=== PATIENT | female | born 1985 | race Caucasian/White ===

== ENCOUNTER 2018-12-21 13:27 | Emergency (ER) | payer OTHER ==
[~2018-12-21] VITALS: Ht 157.5 cm; Wt 60.8 kg
--- NOTE | 2018-12-21 13:33 | NUR ---
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
--- NOTE | 2018-12-21 13:43 | NUR ---
SEEN AND EXAMINED BY .
--- NOTE | 2018-12-21 14:19 | NUR ---
URINE SPECIMEN COLLECTED AND SENT TO LAB.
[2018-12-21] MEDS ORDERED: IBUPROFEN 600 MG TABLET PO ONE ×2 (14:30→14:40)
--- NOTE | 2018-12-21 14:44 | NUR ---
Patient given written and verbal discharge instructions. Patient verbalizes understanding of instructions. Patient is ambulatory with steady gait. Refuses offer of group home placement. Patient given list of available shelters in surrounding area.
[2018-12-21 14:50] VITALS: BP 108/61
== END 2018-12-21 14:52 | disposition home or self-care (01) ==
LOC: ER 13:36
DX: R07.89 Other chest pain (principal); F17.200 Nicotine dependence, unspecified, uncomplicated; F32.9 Major depressive disorder, single episode, unspecified; Z88.8 Allergy status to other drugs, medicaments and biological substances
CPT/HCPCS: 71045-TC

== ENCOUNTER 2018-12-21 16:58 | Emergency (ER) | payer OTHER ==
[~2018-12-21] VITALS: Ht 157.5 cm; Wt 65.8 kg
[2018-12-21 17:03] VITALS: BP 117/73
[2018-12-21] MEDS ORDERED: LORAZEPAM 1 MG TABLET PO ONE (17:30)
--- NOTE | 2018-12-21 17:45 | NUR ---
Patient given written and verbal discharge instructions. Patient verbalizes understanding of instructions. Patient is ambulatory with steady gait. Refuses offer of fci placement. Patient given list of available shelters in surrounding area.
== END 2018-12-21 17:47 | disposition home or self-care (01) ==
LOC: ER 16:59
DX: F41.9 Anxiety disorder, unspecified (principal); F32.9 Major depressive disorder, single episode, unspecified; E11.9 Type 2 diabetes mellitus without complications; J45.909 Unspecified asthma, uncomplicated; F90.9 Attention-deficit hyperactivity disorder, unspecified type; Z32.02 Encounter for pregnancy test, result negative; Z88.8 Allergy status to other drugs, medicaments and biological substances
CPT/HCPCS: 84703-TC

== ENCOUNTER 2018-12-21 20:00 | Emergency (ER) | payer OTHER ==
[~2018-12-21] VITALS: Ht 162.6 cm; Wt 59.0 kg
[2018-12-21 20:12] VITALS: BP 113/60
--- NOTE | 2018-12-21 23:21 | NUR ---
CALLED PT IN WAITING ROOM. NO RESPONSE.
== END 2018-12-22 01:38 | disposition home or self-care (01) ==
LOC: ER 20:00
DX: R51 Headache (principal); F32.9 Major depressive disorder, single episode, unspecified; F90.9 Attention-deficit hyperactivity disorder, unspecified type; Z59.0 Homelessness; Z88.8 Allergy status to other drugs, medicaments and biological substances; Z32.02 Encounter for pregnancy test, result negative

== ENCOUNTER 2018-12-30 18:00 | Emergency (ER) | payer OTHER ==
[~2018-12-30] VITALS: Ht 157.5 cm; Wt 59.0 kg
--- NOTE | 2018-12-30 18:07 | NUR ---
"I WANT TO GO BACK TO [facility]" "I DONT FEEL SAFE OUTSIDE" PT WAS DISCHARGED THIS AM AT [facility] " PT TO BED 11, PT AAOX4, -SOB, VSS, SI PRECAUTIONS INITIATED FOR SAFETY. ALL BELONGING IN UTILITY ROOM PER PROTOCOL
[2018-12-30 18:28] LABS: BASOPHILS # (AUTO) 0.1 /CMM (0.0-0.2); BASOPHILS % (AUTO) 1.2 % (0.0-2.0); EOSINOPHILS % (AUTO) 2.5 % (0.0-6.0); HEMATOCRIT 37 % (33-45); HEMOGLOBIN 12.7 g/dL (11.5-14.8); LYMPHOCYTES # (AUTO) 2.2 /CMM (0.8-4.8); LYMPHOCYTES % (AUTO) 30.7 % (20.0-44.0); MEAN CORPUSCULAR HGB CONC 35 g/dl (31.0-36.0); MEAN CORPUSCULAR VOLUME 81 fL (82-100); MONOCYTES # (AUTO) 0.8 /CMM (0.1-1.30); NEUTROPHILS # (AUTO) 3.8 /CMM (1.8-8.9); NEUTROPHILS % (AUTO) 54.6 % (43.0-81.0); PLATELET COUNT (AUTO) 255 /CMM (150-450); RED BLOOD CELL COUNT(AUTO) 4.51 MIL/uL (4.0-5.2)
[2018-12-30 18:42] LABS: ALANINE AMINOTRANSFERASE 30 U/L (12-78); ALBUMIN 3.9 g/dL (3.4-5.0); ALCOHOL, BLOOD < 3 mg/dL (0-0); ALKALINE PHOSPHATASE 60 U/L (46-116); ASPARTATE AMINOTRANSFERASE 22 U/L (15-37); BILIRUBIN,DIRECT 0.1 mg/dL (0.0-0.2); BILIRUBIN,TOTAL 0.3 mg/dL (0.2-1.0); CALCIUM, SERUM 8.9 mg/dL (8.5-10.1); CARBON DIOXIDE 28 mmol/L (21-32); CHLORIDE 102 mmol/L (98-107); CREATININE 0.8 mg/dL (0.6-1.3); GLUCOSE 88 mg/dL (74-106); POTASSIUM 3.9 mmol/L (3.5-5.1); SODIUM SERUM 137 mmol/L (136-145); TOTAL PROTEIN, SERUM 7.5 g/dL (6.4-8.2); UREA NITROGEN, BLOOD 16 mg/dL (7-18)
[2018-12-30 18:43] LABS: ACETAMINOPHEN < 2 ug/ml (10-30); SALICYLATE 1.7 mg/dL (2.8-20.0)
[2018-12-30] MEDS ORDERED: OLANZAPINE 5 MG TABLET PO ONE (19:00)
[2018-12-30] MEDS ORDERED: OLANZAPINE 5 MG TABLET ONE (19:04)
[2018-12-30 19:14] LABS: APPEARANCE,URINE Clear (CLEAR); BILIRUBIN,URINE Negative (NEGATIVE); BLOOD, URINE Negative Ery/uL (NEGATIVE); COLOR,URINE Yellow (YELLOW); KETONES,URINE Negative (NEGATIVE); LEUKOCYTE ESTERASE ,URINE Negative (NEGATIVE); NITRITE, URINE Negative (NEGATIVE); PROTEIN,URINE Negative (NEGATIVE); UGLUCOSE Negative (NEGATIVE); UROBILINOGEN,URINE 0.2 EU/dL (0.2)
--- NOTE | 2018-12-30 20:36 | NUR ---
Patient given written and verbal discharge instructions. Patient verbalizes understanding of instructions. Patient is ambulatory with steady gait. Refuses offer of longterm placement. Patient given list of available shelters in surrounding area.
[2018-12-30 20:37] VITALS: BP 125/80
== END 2018-12-30 20:38 | disposition home or self-care (01) ==
LOC: ER 18:03
DX: F41.9 Anxiety disorder, unspecified (principal); F31.9 Bipolar disorder, unspecified; F90.9 Attention-deficit hyperactivity disorder, unspecified type; Z88.8 Allergy status to other drugs, medicaments and biological substances
CPT/HCPCS: 36415; 80048; 80076; 80305; 80307; 80329; 81001; 85025; 99284; G0480; 81000-TC

== ENCOUNTER 2019-01-04 19:38 | Emergency (ER) | payer OTHER ==
[~2019-01-04] VITALS: Ht 157.5 cm; Wt 59.0 kg
--- NOTE | 2019-01-04 19:55 | NUR ---
TENA FROM [facility]. PT TO BE TRANSFERRED, UPON TRANSFER PT C/O MIDSTERNAL CHEST PAIN. SHARP, NONRADIATING. 02/01. DENIES SOB, N/V. NO ACUTE DISTRESS NOTED. URINE SENT TO STAT LAB. READY FOR EVAL.
[2019-01-04 20:38] LABS: BASOPHILS # (AUTO) 0.1 /CMM (0.0-0.2); BASOPHILS % (AUTO) 1.5 % (0.0-2.0); EOSINOPHILS % (AUTO) 2.1 % (0.0-6.0); HEMATOCRIT 38 % (33-45); HEMOGLOBIN 13.4 g/dL (11.5-14.8); LYMPHOCYTES # (AUTO) 1.9 /CMM (0.8-4.8); MEAN CORPUSCULAR HGB CONC 35 g/dl (31.0-36.0); MEAN CORPUSCULAR VOLUME 82 fL (82-100); MONOCYTES # (AUTO) 0.7 /CMM (0.1-1.30); MONOCYTES % (AUTO) 8.1 % (2.0-12.0); NEUTROPHILS # (AUTO) 5.5 /CMM (1.8-8.9); NEUTROPHILS % (AUTO) 65.3 % (43.0-81.0); PLATELET COUNT (AUTO) 277 /CMM (150-450); RED BLOOD CELL COUNT(AUTO) 4.65 MIL/uL (4.0-5.2); WHITE BLOOD COUNT (AUTO) 8.4 K/uL (4.3-11.0)
[2019-01-04 20:39] LABS: APPEARANCE,URINE Slightly Cloudy (CLEAR); BILIRUBIN,URINE Negative (NEGATIVE); BLOOD, URINE Moderate Ery/uL (NEGATIVE); COLOR,URINE Yellow (YELLOW); KETONES,URINE Negative (NEGATIVE); LEUKOCYTE ESTERASE ,URINE Trace (NEGATIVE); NITRITE, URINE Negative (NEGATIVE); PROTEIN,URINE Negative (NEGATIVE); UGLUCOSE Negative (NEGATIVE); UROBILINOGEN,URINE 0.2 EU/dL (0.2)
[2019-01-04 20:48] LABS: BACTERIA,URINE Few /HPF (None Seen); SQUAMOUS EPITHELIAL CELL,UR Few /HPF (None Seen)
[2019-01-04 20:59] LABS: CALCIUM, SERUM 9.1 mg/dL (8.5-10.1); CARBON DIOXIDE 32 mmol/L (21-32); CHLORIDE 101 mmol/L (98-107); CREATININE 0.9 mg/dL (0.6-1.3); GLUCOSE 108 mg/dL (74-106); POTASSIUM 3.4 mmol/L (3.5-5.1); SODIUM SERUM 139 mmol/L (136-145); UREA NITROGEN, BLOOD 16 mg/dL (7-18)
[2019-01-04 21:04] LABS: ALANINE AMINOTRANSFERASE 35 U/L (12-78); ALBUMIN 4.3 g/dL (3.4-5.0); ALKALINE PHOSPHATASE 67 U/L (46-116); ASPARTATE AMINOTRANSFERASE 28 U/L (15-37); BILIRUBIN,DIRECT 0.1 mg/dL (0.0-0.2); BILIRUBIN,TOTAL 0.6 mg/dL (0.2-1.0); TOTAL PROTEIN, SERUM 8.2 g/dL (6.4-8.2)
[2019-01-04 21:05] LABS: ACETAMINOPHEN < 2 ug/ml (10-30); ALCOHOL, BLOOD < 3 mg/dL (0-0); SALICYLATE < 2.8 mg/dL (2.8-20.0)
--- NOTE | 2019-01-04 21:17 | NUR ---
PT RESTING COMFORTABLY IN BED. NO COMPLAINTS AT THIS TIME. WILL CONT TO MONITOR.
--- NOTE | 2019-01-04 21:45 | NUR ---
PT UP WALKING AROUND, STATING SHE NEEDS TO "GET SOME AIR". INFORMED PT SHE IS UNABLE TO GO OUTSIDE AND THAT SHE SHOULD WAIT IN HER ROOM. PT COMPLIED
[2019-01-04] MEDS ORDERED: CEPHALEXIN MONOHYDRATE 500 MG CAPSULE PO ONE ×2 (22:00→22:22)
[2019-01-04] MEDS ORDERED: OLANZAPINE 10 MG VIAL IM ONE ×2 (22:49→23:00)
--- NOTE | 2019-01-04 22:50 | NUR ---
PT CONSTANTLY WANDERING AROUND ER AND NEEDS TO BE TOLD TO REMAIN IN ROOM. PT BECAME VERBALLY AND PHYSICALLY AGGRESSIVE. SECURITY NOTIFIED. AWARE.
--- NOTE | 2019-01-05 01:17 | NUR ---
PT RESTING COMFORTABLY IN BED. VITAL SIGNS STABLE. PT STATES SHE IS STILL EXPERIENCING VOICES TELLING HER TO HURT HERSELF. SUICIDE PRECAUTIONS INITIATED. PT WANDED BY SECURITY. SITTER AT BEDSIDE. WILL CONTINUE TO MONITOR.
--- NOTE | 2019-01-05 02:53 | NUR ---
PT RESTING COMFORTABLY IN BED. VITAL SIGNS STABLE. NO ACUTE DISTRESS NOTED AT THIS TIME. SITTER AT BEDSIDE
--- NOTE | 2019-01-05 06:19 | NUR ---
PT RESTING COMFORTABLY IN BED. VITAL SIGNS STABLE. SITTER AT BEDSIDE.
--- NOTE | 2019-01-05 07:55 | NUR ---
CALLED KENJI AT [facility]. WAS ADVISED PT WILL BE PICKED UP AT 1100. AWAITING BED. # FOR REPORT, [phone]. EXT [id number]
[2019-01-05 09:02] VITALS: BP 129/80
--- NOTE | 2019-01-05 09:02 | NUR ---
PT IN BED AT THIS TIME, CHRISTIANO NOTED, VSS, UPDATED PT THAT WE ARE STILL WAITING FOR BED AT [facility].
--- NOTE | 2019-01-05 09:54 | NUR ---
PT ELOPED FROM EMERGECNY DEPARTMENT, PT IS WEARING HOSPITAL GOWN, ALL BELONGINGS IN LOCKER, PT REFUSED TO COME BACK TO EMERGENCY DEPT, SECURITY ATTEMPTED TO STOP PT, UNABLE. CALLED [employer] TO REPORT AT THIS TIME
--- NOTE | 2019-01-05 09:57 | NUR ---
CALLED POLICE DISPATCH, UNIT ON THE WAY.
--- NOTE | 2019-01-05 10:43 | NUR ---
CALLED [employer] TO CANCEL.
--- NOTE | 2019-01-05 10:52 | NUR ---
PT CAME BACK TO [facility] TO GET HER CLOTHES, SPOKE TO DR. OLSEN, PT DENIES ANY SI/HI, GAVE ALL BELONGING TO PT. PT LEFT, REFUSED TO SIGN D/C PAPERWORK AND HOMELESS WAIVER AT THIS TIME.
== END 2019-01-05 10:53 | disposition home or self-care (01) ==
LOC: ER 19:44
DX: R45.851 Suicidal ideations (principal); F29 Unspecified psychosis not due to a substance or known physiological condition; R07.89 Other chest pain; F19.10 Other psychoactive substance abuse, uncomplicated; N39.0 Urinary tract infection, site not specified; F15.90 Other stimulant use, unspecified, uncomplicated; F31.9 Bipolar disorder, unspecified; F90.9 Attention-deficit hyperactivity disorder, unspecified type; F12.10 Cannabis abuse, uncomplicated; R45.1 Restlessness and agitation; Z88.8 Allergy status to other drugs, medicaments and biological substances
CPT/HCPCS: 36415; 71045; 80048; 80076; 80305; 80307; 80329; 81001; 85025; 93005; 96372; 99285; G0480; J3490; 81000-TC

== ENCOUNTER 2019-01-05 15:33 | Emergency (ER) | payer OTHER ==
[~2019-01-05] VITALS: Ht 157.5 cm; Wt 59.0 kg
[2019-01-05 16:07] LABS: BASOPHILS # (AUTO) 0.1 /CMM (0.0-0.2); BASOPHILS % (AUTO) 1.1 % (0.0-2.0); EOSINOPHILS % (AUTO) 1.7 % (0.0-6.0); HEMATOCRIT 38 % (33-45); HEMOGLOBIN 12.9 g/dL (11.5-14.8); LYMPHOCYTES # (AUTO) 1.7 /CMM (0.8-4.8); LYMPHOCYTES % (AUTO) 24.7 % (20.0-44.0); MEAN CORPUSCULAR HGB CONC 34 g/dl (31.0-36.0); MEAN CORPUSCULAR VOLUME 83 fL (82-100); MONOCYTES # (AUTO) 0.5 /CMM (0.1-1.30); MONOCYTES % (AUTO) 7.3 % (2.0-12.0); NEUTROPHILS # (AUTO) 4.5 /CMM (1.8-8.9); NEUTROPHILS % (AUTO) 65.2 % (43.0-81.0); PLATELET COUNT (AUTO) 246 /CMM (150-450); RED BLOOD CELL COUNT(AUTO) 4.54 MIL/uL (4.0-5.2); WHITE BLOOD COUNT (AUTO) 6.9 K/uL (4.3-11.0)
--- NOTE | 2019-01-05 16:08 | NUR ---
Social service consult requested by Dr. Hoover for homelessness. Pt. is a 33 year old female who was brought in by [employer] from [facility] because she kept hitting herself for not being happy with the service there NAYELI met with pt. bedside. Pt. has had several ED visits at [facility]. Pt. appears angry and not very cooperative with SW during the assessment. Pt's eyes are bloodshot red. Pt. has a history of Bipolar Disorder and psychosis. Pt. currently denies suicidal ideations when asked. Pt. is also denying any history of drug and alcohol use, however pt's toxicology in the past ED visits have showed positive for methamphetamines. Current toxicology report is pending. Pt. receives GR and food stamps. NAEYLI offered pt. custodial placement, however pt. declined. NAYELI did leave list of homeless custodial and homeless referral packet in pt's chart to give to pt. upon discharge. Homeless Patient Waiver Form was also placed in pt's chart for pt. to sign upon discharge. NAYELI updated ED CRN Gener with aforementioned information.
[2019-01-05 16:13] LABS: CALCIUM, SERUM 8.7 mg/dL (8.5-10.1); CREATININE 0.8 mg/dL (0.6-1.3); POTASSIUM 3.7 mmol/L (3.5-5.1)
[2019-01-05] MEDS ORDERED: LORAZEPAM INJ 2 MG/ML VIAL IM ONE (16:30)
[2019-01-05] MEDS ORDERED: HALOPERIDOL LACTATE INJ 5 MG/ML VIAL IM ONE (16:30)
[2019-01-05] MEDS ORDERED: diphenhydrAMINE HCL 50 MG/ML VIAL IM ONE (16:30)
[2019-01-05] MEDS ORDERED: HALOPERIDOL LACTATE INJ 5 MG/ML VIAL ONE (16:32)
[2019-01-05] MEDS ORDERED: diphenhydrAMINE HCL 50 MG/ML VIAL ONE (16:33)
[2019-01-05] MEDS ORDERED: LORAZEPAM INJ 2 MG/ML VIAL ONE (16:33)
--- NOTE | 2019-01-05 19:30 | NUR ---
ASSUMED CARE FOR PATIENT AT THIS TIME. PER REPORT, PT WAS BROUGHT BY RA FROM [facility] FOR BIZZARE AND AGGRESSIVE BEHAVIOR. PT BECAME PHYSICALLY AND VERBALLY AGGRESSIVE ON ARRIVAL. PT NOW RESTING COMFORTABLY IN BED. VITAL SIGNS STABLE. SITTER AT BEDSIDE. WILL CONTINUE TO MONITOR.
--- NOTE | 2019-01-05 22:12 | NUR ---
PT ABLE TO AMBULATE TO RESTROOM WITH STEADY GAIT. PROVIDED PT WITH FOOD AND JUICE PER REQUEST
--- NOTE | 2019-01-05 23:58 | NUR ---
PAOLA FLOOR GRINDER AT BEDSIDE FOR EVALUATION
--- NOTE | 2019-01-06 00:30 | NUR ---
PER ART QUARTER SECTION IRONER, LEFT MESSAGE TO STUDIO SALES ASSOCIATE JOSE FOR PLACEMENT IN THE AM
--- NOTE | 2019-01-06 01:39 | NUR ---
PT RESTING COMFORTABLY IN BED. EASILY AROUSABLE. VITAL SIGNS STABLE. WILL CONTINUE TO MONITOR.
--- NOTE | 2019-01-06 02:04 | NUR ---
PT AMBULATORY WITH STEADY GAIT. CALM AND COOPERATIVE. PROVIDED PT WITH SANDWICH PER PT REQUEST
[2019-01-06 04:45] VITALS: BP 101/72
--- NOTE | 2019-01-06 04:46 | NUR ---
PT RESTING COMFORTABLY IN BED. VITAL SIGNS STABLE. WILL CONTINUE TO MONITOR
--- NOTE | 2019-01-06 07:06 | NUR ---
Patient eloped from facility. ER MD notified.
== END 2019-01-06 07:09 | disposition left against medical advice (07) ==
LOC: ER 15:38
DX: R45.851 Suicidal ideations (principal); R45.1 Restlessness and agitation; F90.9 Attention-deficit hyperactivity disorder, unspecified type; F17.200 Nicotine dependence, unspecified, uncomplicated; Z88.8 Allergy status to other drugs, medicaments and biological substances; Z60.2 Problems related to living alone
CPT/HCPCS: 36415; 80048; 80305; 80307; 84703; 85025; 96372 ×3; 99284; J1200; J1630; J2060; G0480

== ENCOUNTER 2019-01-19 13:48 | Emergency (ER) | payer OTHER ==
[2019-01-19] MEDS ORDERED: OLANZAPINE 5 MG TABLET PO ONE (14:30)
[2019-01-19] MEDS ORDERED: LORAZEPAM 0.5 MG TABLET PO ONE (14:30)
[2019-01-19] MEDS ORDERED: LORAZEPAM 0.5 MG TABLET ONE (14:31)
[2019-01-19] MEDS ORDERED: OLANZAPINE 5 MG TABLET ONE (14:31)
== END 2019-01-19 22:50 ==
DX: F20.9 Schizophrenia, unspecified (principal); R45.851 Suicidal ideations; F32.9 Major depressive disorder, single episode, unspecified; F90.9 Attention-deficit hyperactivity disorder, unspecified type; F17.200 Nicotine dependence, unspecified, uncomplicated; F60.0 Paranoid personality disorder; Z91.19 Patient's noncompliance with other medical treatment and regimen; Z59.0 Homelessness; Z88.8 Allergy status to other drugs, medicaments and biological substances
CPT/HCPCS: 36415; 80048; 80076; 80305; 80307; 80329; 81001; 84703; 85025; 99285; G0480

== ENCOUNTER 2019-01-29 05:55 | Emergency (ER) | payer OTHER ==
[~2019-01-29] VITALS: Ht 160 cm; Wt 59.0 kg
[2019-01-29 06:18] VITALS: BP 139/69
[2019-01-29] MEDS ORDERED: LORAZEPAM 1 MG TABLET PO ONE (06:30)
[2019-01-29] MEDS ORDERED: OLANZAPINE 5 MG TABLET PO ONE (06:30)
[2019-01-29] MEDS ORDERED: LORAZEPAM 0.5 MG TABLET ONE (06:36)
[2019-01-29] MEDS ORDERED: OLANZAPINE 5 MG TABLET ONE (06:36)
== END 2019-01-29 07:20 | disposition home or self-care (01) ==
LOC: ER 06:00
DX: F41.9 Anxiety disorder, unspecified (principal); F32.9 Major depressive disorder, single episode, unspecified; F90.9 Attention-deficit hyperactivity disorder, unspecified type; F17.200 Nicotine dependence, unspecified, uncomplicated; Z88.8 Allergy status to other drugs, medicaments and biological substances

== ENCOUNTER 2019-01-30 18:39 | Emergency (ER) | payer OTHER ==
[~2019-01-30] VITALS: Ht 154.9 cm; Wt 55.3 kg
[2019-01-30] MEDS ORDERED: LORAZEPAM 0.5 MG TABLET ONE (19:50)
[2019-01-30] MEDS ORDERED: OLANZAPINE 5 MG TABLET ONE (19:50)
[2019-01-30 20:00] LABS: HEMATOCRIT 37 % (33-45); LYMPHOCYTES % (AUTO) 23.3 % (20.0-44.0); MEAN CORPUSCULAR HGB CONC 35 g/dl (31.0-36.0); MEAN CORPUSCULAR VOLUME 82 fL (82-100); MONOCYTES % (AUTO) 9.8 % (2.0-12.0); NEUTROPHILS % (AUTO) 62.5 % (43.0-81.0); PLATELET COUNT (AUTO) 246 /CMM (150-450); RED BLOOD CELL COUNT(AUTO) 4.55 MIL/uL (4.0-5.2); WHITE BLOOD COUNT (AUTO) 7.4 K/uL (4.3-11.0)
[2019-01-30] MEDS ORDERED: OLANZAPINE 5 MG TABLET PO ONE (20:00)
[2019-01-30] MEDS ORDERED: LORAZEPAM 1 MG TABLET PO ONE (20:00)
[2019-01-30 20:01] LABS: BASOPHILS # (AUTO) 0.1 /CMM (0.0-0.2); BASOPHILS % (AUTO) 1.2 % (0.0-2.0); EOSINOPHILS % (AUTO) 3.2 % (0.0-6.0); LYMPHOCYTES # (AUTO) 1.7 /CMM (0.8-4.8); MONOCYTES # (AUTO) 0.7 /CMM (0.1-1.30); NEUTROPHILS # (AUTO) 4.6 /CMM (1.8-8.9)
[2019-01-30 20:08] LABS: CALCIUM, SERUM 8.8 mg/dL (8.5-10.1); CARBON DIOXIDE 25 mmol/L (21-32); CHLORIDE 101 mmol/L (98-107); CREATININE 0.8 mg/dL (0.6-1.3); GLUCOSE 103 mg/dL (74-106); POTASSIUM 3.9 mmol/L (3.5-5.1); SODIUM SERUM 138 mmol/L (136-145); UREA NITROGEN, BLOOD 14 mg/dL (7-18)
[2019-01-30 20:14] LABS: ALANINE AMINOTRANSFERASE 22 U/L (12-78); ALBUMIN 4.3 g/dL (3.4-5.0); ALCOHOL, BLOOD < 3 mg/dL (0-0); ALKALINE PHOSPHATASE 64 U/L (46-116); ASPARTATE AMINOTRANSFERASE 21 U/L (15-37); BILIRUBIN,DIRECT 0.2 mg/dL (0.0-0.2); BILIRUBIN,TOTAL 0.7 mg/dL (0.2-1.0); SALICYLATE 2.8 mg/dL (2.8-20.0); TOTAL PROTEIN, SERUM 7.9 g/dL (6.4-8.2)
[2019-01-30 20:20] LABS: ACETAMINOPHEN < 2 ug/ml (10-30)
--- NOTE | 2019-01-30 21:00 | NUR ---
COY, WALKED IN TO ER. TO ER BED 13. AAOX3. NO RESP DISTRESS. AMBULATORY. PT NOTED WITH BLOOD SHOT EYES. C/O AUDITORY HALLUCINATIONS TELLING HER THAT THEY WILL THROW SPIDERS AT HER. SHE REPORTS THAT SHE IS AFRAID OF SPIDERS, ARACHNOPHOBIA. DENIES AND PAIN. DENIES SI OR HI. MD WAS AT BEDSIDE FOR EVAL. ORDERS RECEIVED, NOTED AND CARRIED OUT
[2019-01-30 21:17] LABS: APPEARANCE,URINE Slightly Cloudy (CLEAR); BILIRUBIN,URINE SMALL (NEGATIVE); BLOOD, URINE Large Ery/uL (NEGATIVE); COLOR,URINE Red (YELLOW); KETONES,URINE 15 (NEGATIVE); LEUKOCYTE ESTERASE ,URINE Trace (NEGATIVE); NITRITE, URINE Negative (NEGATIVE); PROTEIN,URINE 100 mg/dl (NEGATIVE); UGLUCOSE Negative (NEGATIVE)
[2019-01-30 21:29] LABS: BACTERIA,URINE Few /HPF (None Seen); RBC,URINE 51-80 /HPF (0-2); SQUAMOUS EPITHELIAL CELL,UR Rare /HPF (None Seen); WBC,URINE 0-2 /HPF (0-3)
--- NOTE | 2019-01-31 04:20 | NUR ---
PT IN BED SLEEPING. NAD NOTED
--- NOTE | 2019-01-31 05:21 | NUR ---
PT PROVIDED WITH FOOD. WAIVER SIGNED BY PT.
[2019-01-31 05:23] VITALS: BP 114/70
--- NOTE | 2019-01-31 05:23 | NUR ---
Patient discharged to home in stable condition. Written and verbal after care instructions given. Patient verbalizes understanding of instruction. Pt ambulatory with a steady gait
== END 2019-01-31 05:24 | disposition home or self-care (01) ==
LOC: ER 18:39
DX: F28 Other psychotic disorder not due to a substance or known physiological condition (principal); F32.9 Major depressive disorder, single episode, unspecified; F20.9 Schizophrenia, unspecified; F90.9 Attention-deficit hyperactivity disorder, unspecified type; F17.200 Nicotine dependence, unspecified, uncomplicated; Z91.048 Other nonmedicinal substance allergy status
CPT/HCPCS: 36415; 80048; 80076; 80305; 80307; 80329; 81001; 84703; 85025; 99284; G0480; 81000-TC

== ENCOUNTER 2019-02-05 23:33 | Emergency (ER) | payer OTHER ==
[~2019-02-05] VITALS: Ht 157.5 cm; Wt 68.0 kg
[2019-02-06 01:22] VITALS: BP 126/82
[2019-02-06] MEDS ORDERED: OLANZAPINE 5 MG TABLET PO ONE (02:00)
[2019-02-06] MEDS ORDERED: OLANZAPINE 5 MG TABLET ONE (02:10)
== END 2019-02-06 04:29 | disposition home or self-care (01) ==
LOC: ER 23:35
DX: F41.9 Anxiety disorder, unspecified (principal); F31.9 Bipolar disorder, unspecified; F90.9 Attention-deficit hyperactivity disorder, unspecified type; F17.200 Nicotine dependence, unspecified, uncomplicated; Z59.0 Homelessness; Z88.8 Allergy status to other drugs, medicaments and biological substances

== ENCOUNTER 2019-02-12 21:07 | Emergency (ER) | payer OTHER ==
[~2019-02-12] VITALS: Ht 157.5 cm; Wt 68.0 kg
[2019-02-12 21:30] VITALS: BP 138/96
--- NOTE | 2019-02-12 21:40 | NUR ---
CALLED PT TO BE PLACED INTO ROOM, NOT IN WAITING ROOM
--- NOTE | 2019-02-12 22:18 | NUR ---
CALLED PT TO BE PLACED IN ROOM, NOT IN WAITING ROOM.
--- NOTE | 2019-02-12 23:06 | NUR ---
PT STILL NOT IN WAITING OR OUTSIDE.
== END 2019-02-12 23:07 | disposition left against medical advice (07) ==
LOC: ER 21:09
DX: Z53.21 Procedure and treatment not carried out due to patient leaving prior to being seen by health care provider (principal); F41.9 Anxiety disorder, unspecified; F32.9 Major depressive disorder, single episode, unspecified; F90.9 Attention-deficit hyperactivity disorder, unspecified type

== ENCOUNTER 2019-02-19 23:11 | Emergency (ER) | payer OTHER ==
[~2019-02-19] VITALS: Ht 160 cm; Wt 63.5 kg
[2019-02-19 23:45] VITALS: BP 128/79
[2019-02-20] MEDS ORDERED: OLANZAPINE 5 MG TABLET ONE (17:24)
== END 2019-02-20 03:07 | disposition home or self-care (01) ==
LOC: ER 23:15
DX: F41.9 Anxiety disorder, unspecified (principal); F32.9 Major depressive disorder, single episode, unspecified; F90.9 Attention-deficit hyperactivity disorder, unspecified type; F17.200 Nicotine dependence, unspecified, uncomplicated; Z91.048 Other nonmedicinal substance allergy status

== ENCOUNTER 2019-02-20 15:37 | Emergency (ER) | payer OTHER ==
[~2019-02-20] VITALS: Ht 160 cm; Wt 59.4 kg
[2019-02-20] MEDS ORDERED: OLANZAPINE 5 MG TABLET PO ONE (16:00)
[2019-02-20 17:22] LABS: BASOPHILS # (AUTO) 0.1 /CMM (0.0-0.2); EOSINOPHILS % (AUTO) 3.5 % (0.0-6.0); HEMATOCRIT 39 % (33-45); HEMOGLOBIN 13.5 g/dL (11.5-14.8); LYMPHOCYTES # (AUTO) 1.5 /CMM (0.8-4.8); LYMPHOCYTES % (AUTO) 28.8 % (20.0-44.0); MEAN CORPUSCULAR HGB CONC 35 g/dl (31.0-36.0); MEAN CORPUSCULAR VOLUME 82 fL (82-100); MONOCYTES # (AUTO) 0.6 /CMM (0.1-1.30); MONOCYTES % (AUTO) 11.2 % (2.0-12.0); NEUTROPHILS # (AUTO) 2.9 /CMM (1.8-8.9); NEUTROPHILS % (AUTO) 54.5 % (43.0-81.0); PLATELET COUNT (AUTO) 243 /CMM (150-450); RED BLOOD CELL COUNT(AUTO) 4.78 MIL/uL (4.0-5.2); WHITE BLOOD COUNT (AUTO) 5.3 K/uL (4.3-11.0)
[2019-02-20 17:54] LABS: CALCIUM, SERUM 9.2 mg/dL (8.5-10.1); CARBON DIOXIDE 26 mmol/L (21-32); CHLORIDE 101 mmol/L (98-107); CREATININE 0.8 mg/dL (0.6-1.3); GLUCOSE 98 mg/dL (74-106); POTASSIUM 3.8 mmol/L (3.5-5.1); SODIUM SERUM 137 mmol/L (136-145); UREA NITROGEN, BLOOD 12 mg/dL (7-18)
[2019-02-20 17:59] LABS: ALANINE AMINOTRANSFERASE 19 U/L (12-78); ALKALINE PHOSPHATASE 58 U/L (46-116); ASPARTATE AMINOTRANSFERASE 19 U/L (15-37); BILIRUBIN,DIRECT 0.2 mg/dL (0.0-0.2); BILIRUBIN,TOTAL 0.7 mg/dL (0.2-1.0); TOTAL PROTEIN, SERUM 7.5 g/dL (6.4-8.2)
[2019-02-20 18:00] LABS: ACETAMINOPHEN < 2 ug/ml (10-30); ALCOHOL, BLOOD < 3 mg/dL (0-0); SALICYLATE < 2.8 mg/dL (2.8-20.0)
--- NOTE | 2019-02-20 19:30 | NUR ---
ASSUMED CARE FOR PT AT THIS TIME. PT RESTING COMFORTABLY IN BED. CALM AND COOPERATIVE. VITAL SIGNS STABLE. NO ACUTE DISTRESS NOTED AT THIS TIME
--- NOTE | 2019-02-20 23:21 | NUR ---
URINE SAMPLE SENT TO LAB
[2019-02-20 23:37] LABS: APPEARANCE,URINE Clear (CLEAR); BILIRUBIN,URINE Negative (NEGATIVE); BLOOD, URINE Negative Ery/uL (NEGATIVE); COLOR,URINE Yellow (YELLOW); KETONES,URINE Negative (NEGATIVE); LEUKOCYTE ESTERASE ,URINE Negative (NEGATIVE); NITRITE, URINE Negative (NEGATIVE); PROTEIN,URINE Negative (NEGATIVE); UGLUCOSE Negative (NEGATIVE); UROBILINOGEN,URINE 0.2 EU/dL (0.2)
--- NOTE | 2019-02-21 00:53 | NUR ---
PER [facility] INTAKE, NO BEDS AVAILABLE AT THIS TIME
--- NOTE | 2019-02-21 04:50 | NUR ---
PER [facility] INTAKE, NO BEDS AVAILABLE AT THIS TIME. PT RESTING COMFORTABLY IN BED. VITAL SIGNS STABLE. NO ACUTE DISTRESS NOTED AT THIS TIME. WILL CONTINUE TO MONITOR
--- NOTE | 2019-02-21 06:16 | NUR ---
PT RESTING COMFORTABLY IN BED. EASILY AROUSABLE. VITAL SIGNS STABLE. SITTER AT BEDSIDE. WILL CONTINUE TO MONITOR
--- NOTE | 2019-02-21 07:03 | NUR ---
GAVE REPORT TO MORNING SHIFT RN FOR [facility]
--- NOTE | 2019-02-21 07:34 | NUR ---
PT STATED SHE IS SUICIDAL AND HER PLAN IS TO RUN THROUGH TRAFFIC. AWARE.
--- NOTE | 2019-02-21 07:34 | NUR ---
AT BEDSIDE FOR RE-EVALUATION, AWAITING JOSE FOR EVAL.
--- NOTE | 2019-02-21 08:09 | NUR ---
NAYELI contacted policy change clerks supervisor Mauro at regarding bed availability. Mauro informed NAYELI he will check in with intake and call SW back. NAYELI updated Dr. Pulido and RN Mikael.
--- NOTE | 2019-02-21 08:33 | NUR ---
NAYELI received a callback from Mauro at [facility] informing SW to have ED re-fax clinical packet to . Mauro informed SW they will be discharges at 11:30AM at [facility] and [place] and he will secure a bed for the pt. NAYELI called Mikael in ED requesting him fax clinicals.
--- NOTE | 2019-02-21 09:07 | NUR ---
SPOKED TO KELVIN OF [facility], CLINICALS FAXED, KELVIN WILL CALL BACK FOR BED AVAILABILITY.
--- NOTE | 2019-02-21 09:36 | NUR ---
SPOKED TO [facility] IN NO BEDS AVAILABLE, AND PT IS ON DO NOT ADMIT LIST ACCORDING TO [facility].
--- NOTE | 2019-02-21 11:20 | NUR ---
NAYELI called Mauro to follow up regarding bed availability and informed him that ED RN Mikael received a call from Rodney at [facility] intake informing him that pt. is on the do not admit list. Mauro informed SW he will follow up with intake and call NAYELI back. NAYELI updated ED CRN Gener with aforementioned information.
--- NOTE | 2019-02-21 13:39 | NUR ---
SPOKED TO [facility] OF [facility], NO BEDS AVAILABLE IN [facility].
--- NOTE | 2019-02-21 13:45 | NUR ---
NAYEIL met with pt. bedside to inform her that [facility] has no beds available due to pt. being on a do not admit list. Pt. is aware of being on the do not admit list. Pt. continues to state she is suicidal with a plan to run into traffic. NAYELI consulted with Dr. Pulido and Drill Press Hand supervisor lens generating Heydi Mae who requested for crisis team to evaluate the pt. NAYELI called LILI Orozco in ED and requested him to contact Crisis team for the pt.
--- NOTE | 2019-02-21 13:45 | NUR ---
FOOD TRAY PROVIDED.
--- NOTE | 2019-02-21 14:06 | NUR ---
CALLED ART FOR PSYCH EVAL, ETA WITHIN THE HOUR.
--- NOTE | 2019-02-21 14:45 | NUR ---
PT RE-EVAL BY , PT STATED SHES NOT SUICIDAL ANYMORE.
[2019-02-21 14:47] VITALS: BP 112/61
--- NOTE | 2019-02-21 14:47 | NUR ---
Patient discharged to home in stable condition. Written and verbal after care instructions given. Patient verbalizes understanding of instruction.
== END 2019-02-21 14:49 | disposition home or self-care (01) ==
LOC: ER 15:41
DX: F41.9 Anxiety disorder, unspecified (principal); F28 Other psychotic disorder not due to a substance or known physiological condition; F32.9 Major depressive disorder, single episode, unspecified; F17.200 Nicotine dependence, unspecified, uncomplicated; F20.9 Schizophrenia, unspecified; F90.9 Attention-deficit hyperactivity disorder, unspecified type; Z91.048 Other nonmedicinal substance allergy status
CPT/HCPCS: 36415; 80048; 80076; 80305; 80307; 80329; 81001; 84703; 85025; 99284; G0480; 81000-TC

== ENCOUNTER 2019-02-21 21:09 | Emergency (ER) | payer OTHER ==
[~2019-02-21] VITALS: Ht 160 cm; Wt 61.2 kg
[2019-02-21 22:38] VITALS: BP 142/76
== END 2019-02-21 22:47 | disposition home or self-care (01) ==
LOC: ER 21:11
DX: Z76.5 Malingerer [conscious simulation] (principal); F31.9 Bipolar disorder, unspecified; F90.9 Attention-deficit hyperactivity disorder, unspecified type; F10.10 Alcohol abuse, uncomplicated; F17.200 Nicotine dependence, unspecified, uncomplicated; F15.90 Other stimulant use, unspecified, uncomplicated; Y90.9 Presence of alcohol in blood, level not specified; Z59.0 Homelessness; Z88.8 Allergy status to other drugs, medicaments and biological substances

== ENCOUNTER 2019-02-24 04:47 | Emergency (ER) | payer OTHER ==
[~2019-02-24] VITALS: Ht 160 cm; Wt 59.9 kg
--- NOTE | 2019-02-24 04:49 | NUR ---
TO BED 14 AMBULATORY C/O HEARING VOICES "TELLING ME TO KILL MY SELF AND MY SISTER". PT AAOX4 NO ACUTE DISTRESS NOTED, RESP EVEN AND UNLABORED. PENDING ER MD WAGNER.
[2019-02-24 06:09] LABS: BASOPHILS # (AUTO) 0.1 /CMM (0.0-0.2); BASOPHILS % (AUTO) 1.2 % (0.0-2.0); EOSINOPHILS % (AUTO) 2.5 % (0.0-6.0); HEMATOCRIT 41 % (33-45); HEMOGLOBIN 14.1 g/dL (11.5-14.8); LYMPHOCYTES # (AUTO) 1.3 /CMM (0.8-4.8); LYMPHOCYTES % (AUTO) 22.9 % (20.0-44.0); MEAN CORPUSCULAR HGB CONC 35 g/dl (31.0-36.0); MEAN CORPUSCULAR VOLUME 82 fL (82-100); MONOCYTES # (AUTO) 0.6 /CMM (0.1-1.30); MONOCYTES % (AUTO) 10.3 % (2.0-12.0); NEUTROPHILS # (AUTO) 3.6 /CMM (1.8-8.9); NEUTROPHILS % (AUTO) 63.1 % (43.0-81.0); PLATELET COUNT (AUTO) 240 /CMM (150-450); RED BLOOD CELL COUNT(AUTO) 4.92 MIL/uL (4.0-5.2); WHITE BLOOD COUNT (AUTO) 5.7 K/uL (4.3-11.0)
[2019-02-24 06:13] LABS: APPEARANCE,URINE Clear (CLEAR); BILIRUBIN,URINE SMALL (NEGATIVE); BLOOD, URINE Trace-lysed Ery/uL (NEGATIVE); COLOR,URINE Yellow (YELLOW); KETONES,URINE 40 (NEGATIVE); LEUKOCYTE ESTERASE ,URINE Negative (NEGATIVE); NITRITE, URINE Negative (NEGATIVE); PROTEIN,URINE Negative (NEGATIVE); UGLUCOSE Negative (NEGATIVE); UROBILINOGEN,URINE 0.2 EU/dL (0.2)
[2019-02-24 06:16] LABS: CALCIUM, SERUM 9.2 mg/dL (8.5-10.1); CARBON DIOXIDE 26 mmol/L (21-32); CHLORIDE 103 mmol/L (98-107); CREATININE 0.8 mg/dL (0.6-1.3); GLUCOSE 109 mg/dL (74-106); POTASSIUM 3.9 mmol/L (3.5-5.1); SODIUM SERUM 138 mmol/L (136-145); UREA NITROGEN, BLOOD 12 mg/dL (7-18)
[2019-02-24 06:22] LABS: ALANINE AMINOTRANSFERASE 16 U/L (12-78); ALBUMIN 4.4 g/dL (3.4-5.0); ALCOHOL, BLOOD < 3 mg/dL (0-0); ALKALINE PHOSPHATASE 63 U/L (46-116); ASPARTATE AMINOTRANSFERASE 16 U/L (15-37); BILIRUBIN,DIRECT 0.2 mg/dL (0.0-0.2); BILIRUBIN,TOTAL 0.6 mg/dL (0.2-1.0); TOTAL PROTEIN, SERUM 8.3 g/dL (6.4-8.2)
[2019-02-24 06:24] LABS: ACETAMINOPHEN 0 ug/ml (10-30); SALICYLATE 2.7 mg/dL (2.8-20.0)
[2019-02-24 06:59] LABS: BACTERIA,URINE Rare /HPF (None Seen); SQUAMOUS EPITHELIAL CELL,UR Few /HPF (None Seen); WBC,URINE NONE SEEN /HPF (0-3)
--- NOTE | 2019-02-24 07:30 | NUR ---
ASSESSED PT ON BED, EASILY AROUSABLE, V/S STABLE, KEPT RESTED AND COMFORTABLE, WILL CONITNUE TO MONITOR.
--- NOTE | 2019-02-24 08:47 | NUR ---
NAYELI contacted Mauro, press supervisor at [facility] requesting if pt. can be accepted to [place] or [place]. Mauro informed NAYELI he will look into it and call NAYELI back.
--- NOTE | 2019-02-24 08:55 | NUR ---
NAYELI received a call back from [facility] informing NAYELI that pt. is on the "do not admit" list at [facility], [place] and [place] because of acting out behaviors and was in police custody at [facility] and [place]. NAYELI updated ED LILI May with aforementioned information.
--- NOTE | 2019-02-24 13:41 | NUR ---
PT ASLEEP ON BED EASILY AROUSABLE, AAOX4, V/S STABLE, WILL CONTINUE TO MONITOR.
[2019-02-24 14:20] VITALS: BP 122/71
--- NOTE | 2019-02-24 15:10 | NUR ---
JOSE TYLER AT BEDSIDE FOR EVAL.
--- NOTE | 2019-02-24 15:11 | NUR ---
PT STATED SHE IS NOT SUICIDAL AND JUST WANT A PLACE TO STAY.
--- NOTE | 2019-02-24 15:17 | NUR ---
NAYELI met with the pt. bedside. Pt. is alert and oriented x 4. Pt. is ambulatory. Pt. states, " I am not suicidal and wanted a place to stay." Pt. has had several ED visits at [facility] within the last few months for the same complaint, feeling suicidal. Pt. tends to malinger in the ED. SW offered pt. prison placement and resources, however, pt. declined. Pt.was given meals while in the ED and provided with a tap card. Pt. was given the following resources: [facility], [address] [place] [address] ; [facility] [place], [address] [place] ; [facility] Homeless Resource Directory which includes food stamps, transitional housing, showers and hot meals etc; Mental Health clinics such as [facility] ; [facility] ; Health clinics;[facility] and Alcohol treatment centers such as [facility], ; [facility] Substance Abuse Hotline and [facility] . Homeless Patient waiver form to be signed by the pt. upon discharge.
--- NOTE | 2019-02-24 15:40 | NUR ---
Patient given written and verbal discharge instructions. Patient verbalizes understanding of instructions. Patient is ambulatory with steady gait. Refuses offer of retirement placement. Patient given list of available shelters in surrounding area.
== END 2019-02-24 15:42 | disposition home or self-care (01) ==
LOC: ER 04:47
DX: F41.9 Anxiety disorder, unspecified (principal); F15.10 Other stimulant abuse, uncomplicated; F20.9 Schizophrenia, unspecified; F31.9 Bipolar disorder, unspecified; F90.9 Attention-deficit hyperactivity disorder, unspecified type; F10.10 Alcohol abuse, uncomplicated; F17.200 Nicotine dependence, unspecified, uncomplicated; Y90.0 Blood alcohol level of less than 20 mg/100 ml; Z59.0 Homelessness
CPT/HCPCS: 36415; 80048; 80076; 80305; 80307; 80329; 81001; 85025; 99284; G0480; 81000-TC

== ENCOUNTER 2019-02-27 04:52 | Emergency (ER) | payer OTHER ==
--- NOTE | 2019-02-27 05:08 | NUR ---
CALLED TO TRIAGE. NO ANSWER. NOT IN WAITING ROOM
--- NOTE | 2019-02-27 05:49 | NUR ---
CALLED AGAIN TO TRIAGE. NO ANSWER. NO WHERE TO BE FOUND IN THE WAITING ROOM
== END 2019-02-27 06:15 | disposition left against medical advice (07) ==
LOC: ER 04:54
DX: Z53.21 Procedure and treatment not carried out due to patient leaving prior to being seen by health care provider (principal)